=== PATIENT | male | born 1960 | race African-American/Black ===

== ENCOUNTER 2017-01-08 02:01 | Emergency (ER) | payer MEDICAID ==
[~2017-01-08] VITALS: Ht 170.2 cm; Wt 70.0 kg
[~2017-01-08 02:01] MED LIST: ATOR10TA69 PO; CALC1TAB17 PO; DILANTIN PO; FERR1TAB51 PO; MULT-1146 PO; OMEP40CA34 PO; [UNRECOGNIZED DRUG - CODE] PO; [UNRECOGNIZED DRUG - OTHER] PO
[2017-01-08] MEDS ORDERED: TRAMADOL 50MG TABLET PO ONE (03:15)
[2017-01-08 03:45] VITALS: BP 149/103
== END 2017-01-08 03:45 | disposition home or self-care (01) ==
LOC: ER 02:24
DX: H66.92 Otitis media, unspecified, left ear (principal); F17.210 Nicotine dependence, cigarettes, uncomplicated; M19.90 Unspecified osteoarthritis, unspecified site; I10 Essential (primary) hypertension; Z90.49 Acquired absence of other specified parts of digestive tract; Z79.899 Other long term (current) drug therapy
CPT/HCPCS: 99283

== ENCOUNTER 2018-09-24 09:07 | Emergency (ER) | payer MEDICAID ==
[~2018-09-24] VITALS: Ht 170.2 cm; Wt 63.0 kg
[~2018-09-24 09:07] MED LIST changes: +PHEN100O2 PO; -[UNRECOGNIZED DRUG - CODE] PO
[2018-09-24 13:35] VITALS: BP 132/84
== END 2018-09-24 13:36 | disposition home or self-care (01) ==
LOC: ER 09:07
DX: J06.9 Acute upper respiratory infection, unspecified (principal); D64.9 Anemia, unspecified; F32.9 Major depressive disorder, single episode, unspecified; I10 Essential (primary) hypertension; F17.200 Nicotine dependence, unspecified, uncomplicated; Z90.49 Acquired absence of other specified parts of digestive tract; Z79.899 Other long term (current) drug therapy
CPT/HCPCS: 71045; 87804; 99284

== ENCOUNTER 2018-10-30 08:55 | Emergency (ER) | payer MEDICAID ==
[~2018-10-30] VITALS: Ht 177.8 cm; Wt 80.0 kg
[2018-10-30] MEDS ORDERED: ACETAMINOPHEN 325MG TABLET PO ONE (11:00)
[2018-10-30] MEDS ORDERED: KETOROLAC 60MG/2ML VIAL IM ONE (11:15)
[2018-10-30] MEDS ORDERED: SODIUM CHLORIDE 0.9% 1,000 ML IV ONE (14:10)
[2018-10-30] MEDS ORDERED: MORPHINE SULFATE 4 MG/ML CPJ (NOT FOR IM USE) IV STA (14:10)
[2018-10-30] MEDS ORDERED: ONDANSETRON HCL 4MG/2ML INJ IV ONE (14:30)
[2018-10-30 15:10] LABS: CHLORIDE 100 mEq/L (98-107)
[2018-10-30 15:11] LABS: HEMATOCRIT. 23.3 % (42.0-52.0); HEMOGLOBIN. 7.6 g/dL (14.0-18.0); MEAN CORPUSCULAR HEMOGLOBIN 25.2 pg (28.0-32.0); MEAN CORPUSCULAR VOLUME 76.9 fL (80.0-94.0); MEAN PLATELET VOLUME 7.9 fl (7.4-10.4); PLATELET 130 x1000/uL (130-400); PROTHROMBIN TIME 9.8 sec (9.1-11.1); RED BLOOD CELL COUNT 3.03 mill/uL (4.7-6.1); RED CELL DISTRIBUTION WIDTH 16.4 % (11.6-14.6)
[2018-10-30 15:30] LABS: PLATELET ESTIMATE NORMAL
[2018-10-30 18:14] VITALS: BP 129/73
== END 2018-10-30 18:35 | disposition short-term general hospital (02) ==
LOC: ER 08:55 → CANBEDREQ 19:15
DX: S36.113A Laceration of liver, unspecified degree, initial encounter (principal); S22.41XA Multiple fractures of ribs, right side, initial encounter for closed fracture; J90 Pleural effusion, not elsewhere classified; F32.9 Major depressive disorder, single episode, unspecified; N28.1 Cyst of kidney, acquired; J98.11 Atelectasis; I10 Essential (primary) hypertension; D64.9 Anemia, unspecified; G40.909 Epilepsy, unspecified, not intractable, without status epilepticus; M41.84 Other forms of scoliosis, thoracic region; Z90.49 Acquired absence of other specified parts of digestive tract; V43.52XA Car driver injured in collision with other type car in traffic accident, initial encounter; Y93.89 Activity, other specified; Y92.488 Other paved roadways as the place of occurrence of the external cause
CPT/HCPCS: 36415; 71045; 71250; 74177; 80053; 83690; 85025; 85610; 86850; 86900; 86901; 96361; 96372; 96374; 96375; 99285; J1885; J2270; J2405

== ENCOUNTER 2018-11-18 13:27 | Inpatient (IN) | payer MEDICAID ==
[~2018-11-18] VITALS: Ht 171.4 cm; Wt 59.6 kg
[2018-11-18] MEDS ORDERED: METHYLPREDNISOLONE SOD SUCC 125 MG/2 ML VIAL IV ONE (14:00)
[2018-11-18] MEDS ORDERED: FAMOTIDINE 20MG/2ML VIAL IV ONE (14:00)
[2018-11-18 15:51] LABS: CHLORIDE 96 mEq/L (98-107)
[2018-11-18 15:54] LABS: BASOPHILS % 0.2 % (0.0-2.0); EOSINOPHILS % 1.9 % (0.0-5.0); HEMATOCRIT. 37.2 % (42.0-52.0); HEMOGLOBIN. 11.7 g/dL (14.0-18.0); INR 1.1; LYMPHOCYTES % 14.1 % (20.0-50.0); MEAN CORPUSCULAR HEMOGLOBIN 25.7 pg (28.0-32.0); MEAN CORPUSCULAR VOLUME 81.6 fL (80.0-94.0); MEAN PLATELET VOLUME 6.9 fl (7.4-10.4); MONOCYTES % 5.1 % (2.0-8.0); NEUTROPHILS % 78.7 % (40.0-76.0); PLATELET 311 x1000/uL (130-400); PROTHROMBIN TIME 10.8 sec (9.1-11.1); RED BLOOD CELL COUNT 4.56 mill/uL (4.7-6.1); RED CELL DISTRIBUTION WIDTH 18.2 % (11.6-14.6)
[2018-11-18] MEDS ORDERED: DIPHENHYDRAMINE 50MG/ML VIAL IV ONE (16:45)
[2018-11-18] MEDS ORDERED: DOCUSATE SODIUM 100MG CAPSULE PO PRN (18:00)
[2018-11-18] MEDS ORDERED: CLONIDINE 0.1MG TABLET PO PRN (18:00)
[2018-11-18] MEDS ORDERED: IPRATROPIUM/ALBUTEROL 0.5-3(2.5)MG/3ML NEB INH PRN (18:00)
[2018-11-18] MEDS ORDERED: ACETAMINOPHEN 325MG TABLET PO PRN (18:00)
[2018-11-18] MEDS ORDERED: MAGNESIUM/ALUMINUM HYDROXIDE/SIMETHICONE 30ML UDC PO PRN (18:00)
[2018-11-18] MEDS ORDERED: ONDANSETRON HCL 4MG/2ML INJ IV PRN (18:00)
[2018-11-18 21:45] VITALS: BP 120/80
[2018-11-18 22:00] VITALS: BP 120/80
[2018-11-18] MEDS ORDERED: FAMOTIDINE 20MG/2ML VIAL IV SCH (22:00)
[2018-11-18] MEDS: METHYLPREDNISOLONE SOD SUCC 125 MG/2 ML VIAL IV SCH (23:39)
[2018-11-19 00:47] LABS: CREATINE KINASE 42 IU/L (39-308)
[2018-11-19 00:48] LABS: CREATINE KINASE MB FRACTION < 1.0 ng/mL (0.5-3.6)
[2018-11-19 04:00] VITALS: BP 103/67
[2018-11-19 04:49] LABS: *AMPHETAMINES SCREEN URINE NEGATIVE (NEGATIVE); *BARBITURATES SCREEN URINE NEGATIVE (NEGATIVE); *BENZODIAZEPINES SCREEN URINE NEGATIVE (NEGATIVE)
[2018-11-19 04:50] LABS: *COCAINE SCREEN URINE NEGATIVE (NEGATIVE); CANNABINOID URINE SCREEN NEGATIVE (NEGATIVE); METHADONE URINE SCREEN NEGATIVE (NEGATIVE); OPIATES URINE SCREEN PRESUMTIVE POSITIVE (NEGATIVE); PHENCYCLIDINE URINE SCREEN NEGATIVE (NEGATIVE)
[2018-11-19] MEDS ORDERED: DEXTROSE 50% WATER 50ML SYRINGE IV PRN (05:00)
[2018-11-19] MEDS: METHYLPREDNISOLONE SOD SUCC 125 MG/2 ML VIAL IV SCH ×3 (06:53→21:01)
[2018-11-19] MEDS: BLOOD SUGAR DIAGNOSTIC STRIP TEST SCH ×4 (06:53→21:08)
[2018-11-19] MEDS: INSULIN LISPRO 100 UNITS/ML SUBCUT SCH ×4 (07:02→21:00)
[2018-11-19 08:00] VITALS: BP 115/74
[2018-11-19] MEDS: ENOXAPARIN 40MG/0.4ML SYR SUBCUT SCH (08:22)
[2018-11-19] MEDS: FAMOTIDINE 20MG/2ML VIAL IV SCH ×2 (08:22→20:58)
[2018-11-19] MEDS: LEVETIRACETAM 500MG TABLET PO SCH (11:52)
[2018-11-19] MEDS: PHENYTOIN SODIUM EXTENDED 100MG CAPSULE PO SCH (11:52)
[2018-11-19] MEDS ORDERED: PNEUMOCOCCAL 23-VAL P-SAC VAC 0.5 ML IM ONE (12:00)
[2018-11-19 15:46] LABS: BASOPHILS % 0.9 % (0.0-2.0); HEMOGLOBIN. 9.9 g/dL (14.0-18.0); LYMPHOCYTES % 29.1 % (20.0-50.0); MEAN CORPUSCULAR HEMOGLOBIN 26.2 pg (28.0-32.0); MEAN CORPUSCULAR VOLUME 79.5 fL (80.0-94.0); MEAN PLATELET VOLUME 7.1 fl (7.4-10.4); MONOCYTES % 5.7 % (2.0-8.0); NEUTROPHILS % 62.3 % (40.0-76.0); PLATELET 292 x1000/uL (130-400); RED BLOOD CELL COUNT 3.77 mill/uL (4.7-6.1); RED CELL DISTRIBUTION WIDTH 18.1 % (11.6-14.6)
[2018-11-19 15:56] LABS: CHLORIDE 100 mEq/L (98-107)
[2018-11-19 16:04] LABS: LDL CHOLESTEROL 42 mg/dL (5-100)
[2018-11-19 16:05] LABS: CREATINE KINASE 38 IU/L (39-308); HDL CHOLESTEROL 98 mg/dL (40-59)
[2018-11-19 16:08] LABS: CREATINE KINASE MB FRACTION < 1.0 ng/mL (0.5-3.6)
[2018-11-19] MEDS: HYDROMORPHONE HCL/PF 2MG/ML CPJ IV PRN (17:50)
[2018-11-19 20:01] VITALS: BP 118/65
[2018-11-19] MEDS ORDERED: EPINEPHRINE 0.1MG/ML (1:10,000) 10ML SYR IV ONE (21:15)
[2018-11-19] MEDS ORDERED: EPINEPHRINE 0.1MG/ML (1:10,000) 10ML SYR IV PRN (21:30)
[2018-11-19 22:00] VITALS: BP 118/65
[2018-11-19 23:51] VITALS: BP 108/64
[2018-11-20] VITALS (7 sets, daily range): BP systolic 103–121; BP diastolic 62–79
[2018-11-20] MEDS ORDERED: PNEUMOCOCCAL 23-VAL P-SAC VAC 0.5 ML IM ONE
[2018-11-20] MEDS: METHYLPREDNISOLONE SOD SUCC 125 MG/2 ML VIAL IV SCH ×2 (06:57→13:31)
[2018-11-20] MEDS: INSULIN LISPRO 100 UNITS/ML SUBCUT SCH ×2 (07:05→12:20)
[2018-11-20] MEDS: BLOOD SUGAR DIAGNOSTIC STRIP TEST SCH ×2 (07:05→12:00)
[2018-11-20] MEDS: ENOXAPARIN 40MG/0.4ML SYR SUBCUT SCH (08:22)
[2018-11-20] MEDS: FAMOTIDINE 20MG/2ML VIAL IV SCH (08:22)
[2018-11-20] MEDS: LEVETIRACETAM 500MG TABLET PO SCH (08:22)
[2018-11-20] MEDS: PHENYTOIN SODIUM EXTENDED 100MG CAPSULE PO SCH (08:23)
[2018-11-20] MEDS: HYDROMORPHONE HCL/PF 2MG/ML CPJ IV PRN (08:35)
[2018-11-20] MEDS ORDERED: LORA10TA7 MT (14:06)
[2018-11-20] MEDS ORDERED: FAMO-135 MT (14:06)
[2018-11-20] MEDS ORDERED: MED4 MT (14:06)
[2018-11-20] MEDS ORDERED: KEPP500 PO (14:08)
== END 2018-11-20 15:35 | disposition home or self-care (01) | DRG 811 ==
LOC: ER 13:40 → 3WST 16:35 → ENRESERV 20:01
PROVIDERS: ADMIT Internal Medicine; ATTEND Internal Medicine
PROC: 30233K1 Transfusion of Nonautologous Frozen Plasma into Peripheral Vein, Percutaneous Approach (ICD-10-PCS; principal; 2018-11-18)
DX: T78.3XXA Angioneurotic edema, initial encounter (principal); J96.00 Acute respiratory failure, unspecified whether with hypoxia or hypercapnia; R13.10 Dysphagia, unspecified; D50.9 Iron deficiency anemia, unspecified; F17.210 Nicotine dependence, cigarettes, uncomplicated; E78.5 Hyperlipidemia, unspecified; G40.909 Epilepsy, unspecified, not intractable, without status epilepticus; I10 Essential (primary) hypertension; J98.19 Other pulmonary collapse; R47.02 Dysphasia; T46.4X5A Adverse effect of angiotensin-converting-enzyme inhibitors, initial encounter; Z86.79 Personal history of other diseases of the circulatory system; Z88.8 Allergy status to other drugs, medicaments and biological substances; Z79.899 Other long term (current) drug therapy; Y92.89 Other specified places as the place of occurrence of the external cause
CPT/HCPCS: 36415; 71045; 80061; 80305; 82550; 82553; 82962; 82977; 83036; 83735; 84443; 84484; 86850; 86900; 86927; 90732; 93005; 93970; 96374; 96375; 99291; J1170; J1200; J1650; J2930; J3490; P9017

== ENCOUNTER 2019-01-14 11:55 | Inpatient (IN) | payer MEDICAID ==
[~2019-01-14] VITALS: Ht 172.7 cm; Wt 59.9 kg
[~2019-01-14 11:55] MED LIST changes: +FAMO-135 MT; +KEPP500 PO; +LORA10TA7 MT; +MED4 MT; -PHEN100O2 PO; -[UNRECOGNIZED DRUG - OTHER] PO
[2019-01-14 16:02] LABS: CLARITY URINE CLEAR (CLEAR); COLOR URINE YELLOW (YELLOW); KETONES URINE TRACE (NEGATIVE); LEUKOCYTE ESTERASE URINE TRACE (NEGATIVE); NITRITE URINE NEGATIVE (NEGATIVE); OCCULT BLOOD URINE NEGATIVE (NEGATIVE); PH URINE 5.5 (4.5-8.0); PROTEIN URINE NEGATIVE (NEGATIVE); SPECIFIC GRAVITY URINE 1.017 (1.005-1.030); UROBILINOGEN URINE 0.2 E.U./dL (0.2-1.0)
[2019-01-14] MEDS ORDERED: IBUPROFEN 600MG TABLET PO ONE (17:15)
[2019-01-14] MEDS ORDERED: HYDROCODONE/ACETAMINOPHEN 5/325MG TABLET PO ONE (17:15)
[2019-01-14 18:32] LABS: HEMATOCRIT. 31.1 % (42.0-52.0); HEMOGLOBIN. 10.1 g/dL (14.0-18.0); MEAN CORPUSCULAR HEMOGLOBIN 24.5 pg (28.0-32.0); MEAN CORPUSCULAR VOLUME 75.6 fL (80.0-94.0); MEAN PLATELET VOLUME 6.5 fl (7.4-10.4); PLATELET 220 x1000/uL (130-400); RED BLOOD CELL COUNT 4.11 mill/uL (4.7-6.1); RED CELL DISTRIBUTION WIDTH 16.4 % (11.6-14.6)
[2019-01-14 18:38] LABS: CHLORIDE 99 mEq/L (98-107)
[2019-01-14] MEDS ORDERED: VANCOMYCIN 1 G PREMIX 200 ML IV ONE (19:45)
[2019-01-14] MEDS ORDERED: PIPERACILLIN/TAZ 3.375G PREMIX 50 ML IV ONE (19:45)
[2019-01-14] MEDS ORDERED: MAGNESIUM/ALUMINUM HYDROXIDE/SIMETHICONE 30ML UDC PO PRN (20:30)
[2019-01-14] MEDS ORDERED: GUAIFENESIN 200MG/10ML SUGAR FREE UDC PO PRN (20:30)
[2019-01-14] MEDS ORDERED: DOCUSATE SODIUM 100MG CAPSULE PO PRN (20:30)
[2019-01-14] MEDS ORDERED: HYDRALAZINE 20MG/ML VIAL IV PRN (20:30)
[2019-01-14] MEDS ORDERED: DIPHENHYDRAMINE 50MG/ML VIAL IV PRN (20:30)
[2019-01-14] MEDS ORDERED: CLONIDINE 0.1MG TABLET PO PRN (20:30)
[2019-01-14] MEDS ORDERED: LORAZEPAM 2MG/ML CPJ IV PRN (20:30)
[2019-01-14] MEDS ORDERED: ACETAMINOPHEN 325MG TABLET PO PRN (20:30)
[2019-01-14] MEDS ORDERED: IPRATROPIUM/ALBUTEROL 0.5-3(2.5)MG/3ML NEB INH PRN (20:30)
[2019-01-14] MEDS ORDERED: ONDANSETRON HCL 4MG/2ML INJ IV PRN (20:30)
[2019-01-14 20:38] LABS: PLATELET ESTIMATE NORMAL
[2019-01-14 22:40] LABS: CREATINE KINASE 62 IU/L (39-308)
[2019-01-14 22:41] LABS: CREATINE KINASE MB FRACTION < 1.0 ng/mL (0.5-3.6)
[2019-01-15] VITALS (7 sets, daily range): BP systolic 98–125; BP diastolic 56–78
[2019-01-15] MEDS ORDERED: HYDRALAZINE 10 MG in DEXTROSE 5% WATER 50 ML IV PRN (02:00)
[2019-01-15] MEDS ORDERED: VANCOMYCIN 750 MG PREMIX 150 ML IV SCH (05:00)
[2019-01-15] MEDS: PIPERACILLIN/TAZ 3.375G PREMIX 50 ML IV SCH ×2 (06:35→14:32)
[2019-01-15] MEDS: SODIUM CHLORIDE 0.9% INJ 3ML FLUSH IVF SCH ×3 (06:48→23:26)
[2019-01-15 07:21] LABS: HEMATOCRIT. 30.8 % (42.0-52.0); HEMOGLOBIN. 9.9 g/dL (14.0-18.0); MEAN CORPUSCULAR VOLUME 74.6 fL (80.0-94.0); MEAN PLATELET VOLUME 6.8 fl (7.4-10.4); PLATELET 225 x1000/uL (130-400); RED BLOOD CELL COUNT 4.13 mill/uL (4.7-6.1); RED CELL DISTRIBUTION WIDTH 16.1 % (11.6-14.6)
[2019-01-15 07:47] LABS: CHLORIDE 102 mEq/L (98-107)
[2019-01-15 08:04] LABS: CREATINE KINASE 51 IU/L (39-308)
[2019-01-15 08:07] LABS: CREATINE KINASE MB FRACTION < 1.0 ng/mL (0.5-3.6)
[2019-01-15] MEDS: VANCOMYCIN 750 MG PREMIX 150 ML IV SCH ×2 (11:57→22:45)
[2019-01-15] MEDS: HYDROCODONE/ACETAMINOPHEN 10/325MG TABLET PO PRN ×3 (12:02→22:45)
[2019-01-15 13:23] LABS: PLATELET ESTIMATE NORMAL
[2019-01-15] MEDS: LORATADINE 10MG TABLET PO SCH (15:47)
[2019-01-15] MEDS: PHENYTOIN SODIUM EXTENDED 100MG CAPSULE PO SCH (15:47)
[2019-01-15] MEDS: CALCIUM CARBONATE 500MG TABLET CHEW PO SCH (15:47)
[2019-01-15] MEDS: MULTIVITAMINS,THER W-MINERALS TABLET PO SCH (15:48)
[2019-01-15] MEDS: LEVETIRACETAM 500MG TABLET PO SCH (15:48)
[2019-01-15] MEDS: FERROUS SULFATE 325MG TABLET PO SCH (15:48)
[2019-01-15] MEDS: FAMOTIDINE 20MG TABLET PO SCH (22:45)
[2019-01-16] VITALS (17 sets, daily range): BP systolic 101–140; BP diastolic 55–87
[2019-01-16 00:05] LABS: PROTHROMBIN TIME 10.2 sec (9.1-11.1)
[2019-01-16] MEDS: PIPERACILLIN/TAZ 3.375G PREMIX 50 ML IV SCH ×3 (01:23→17:41)
[2019-01-16] MEDS: SODIUM CHLORIDE 0.9% INJ 3ML FLUSH IVF SCH (06:32)
[2019-01-16] MEDS: VANCOMYCIN 750 MG PREMIX 150 ML IV SCH (06:32)
[2019-01-16 07:43] LABS: CHLORIDE 102 mEq/L (98-107)
[2019-01-16] MEDS: CALCIUM CARBONATE 500MG TABLET CHEW PO SCH ×3 (08:07→17:41)
[2019-01-16] MEDS: PHENYTOIN SODIUM EXTENDED 100MG CAPSULE PO SCH (08:07)
[2019-01-16] MEDS: MULTIVITAMINS,THER W-MINERALS TABLET PO SCH (08:07)
[2019-01-16] MEDS: FAMOTIDINE 20MG TABLET PO SCH ×2 (08:07→21:26)
[2019-01-16] MEDS: LORATADINE 10MG TABLET PO SCH (08:07)
[2019-01-16] MEDS: FERROUS SULFATE 325MG TABLET PO SCH (08:08)
[2019-01-16] MEDS: HYDROCODONE/ACETAMINOPHEN 10/325MG TABLET PO PRN ×3 (08:08→19:02)
[2019-01-16] MEDS: LEVETIRACETAM 500MG TABLET PO SCH (08:08)
[2019-01-16] MEDS ORDERED: LIDOCAINE HCL 1% 20ML VIAL (Pyxis) INJ ONE (08:19)
[2019-01-16] MEDS ORDERED: SODIUM BICARBONATE 4% (2.4MEQ) 5ML VIAL IV ONE (08:19)
[2019-01-16] MEDS ORDERED: FENTANYL CITRATE/PF 50MCG/ML 2ML VIAL ONE (08:20)
[2019-01-16] MEDS ORDERED: FENTANYL CITRATE/PF 50MCG/ML 2ML VIAL IV ONE (10:00)
[2019-01-16] MEDS: HYDROMORPHONE HCL/PF 2MG/ML CPJ IV PRN ×2 (16:02→21:31)
[2019-01-16] MEDS: VANCOMYCIN 1 G PREMIX 200 ML IV SCH (18:59)
[2019-01-17] VITALS: BP 120/80
[2019-01-17] MEDS: PIPERACILLIN/TAZ 3.375G PREMIX 50 ML IV SCH ×2 (01:00→12:15)
[2019-01-17 04:00] VITALS: BP 113/71
[2019-01-17] MEDS: VANCOMYCIN 1 G PREMIX 200 ML IV SCH (06:00)
[2019-01-17 08:00] VITALS: BP 111/73
[2019-01-17] MEDS: LORATADINE 10MG TABLET PO SCH (09:02)
[2019-01-17] MEDS: LEVETIRACETAM 500MG TABLET PO SCH (09:02)
[2019-01-17] MEDS: MULTIVITAMINS,THER W-MINERALS TABLET PO SCH (09:02)
[2019-01-17] MEDS: FERROUS SULFATE 325MG TABLET PO SCH (09:02)
[2019-01-17] MEDS: CALCIUM CARBONATE 500MG TABLET CHEW PO SCH (09:02)
[2019-01-17] MEDS: PHENYTOIN SODIUM EXTENDED 100MG CAPSULE PO SCH (09:02)
[2019-01-17] MEDS: FAMOTIDINE 20MG TABLET PO SCH (09:02)
[2019-01-17] MEDS: HYDROCODONE/ACETAMINOPHEN 10/325MG TABLET PO PRN (09:09)
[2019-01-17 12:00] VITALS: BP 142/78
[2019-01-17 13:26] VITALS: BP 142/78
== END 2019-01-17 13:55 | disposition home or self-care (01) | DRG 279 ==
LOC: ER 12:32 → 6EST 20:00 → EDBEDREQSVC 20:03 → EDBEDREQTM 20:03 → EDBEDREQ 20:03 → ENRESERV 23:21
PROVIDERS: ADMIT Internal Medicine; ATTEND Internal Medicine
PROC: 0F913ZZ Drainage of Right Lobe Liver, Percutaneous Approach (ICD-10-PCS; principal; 2019-01-16)
DX: K75.0 Abscess of liver (principal); E44.1 Mild protein-calorie malnutrition; D50.9 Iron deficiency anemia, unspecified; E78.5 Hyperlipidemia, unspecified; F17.210 Nicotine dependence, cigarettes, uncomplicated; F32.9 Major depressive disorder, single episode, unspecified; I10 Essential (primary) hypertension; Z79.899 Other long term (current) drug therapy; Z88.8 Allergy status to other drugs, medicaments and biological substances; Z90.49 Acquired absence of other specified parts of digestive tract
CPT/HCPCS: 36415; 74176; 77012; 80048; 80202; 82550; 82553; 83605; 84145; 84484; 87070; 87075; 88172; 88173; 88312; 96374; 96375; 99285; J1170; J1200; J2060; J2543; J3010; J3370; J3490; J7040; J7050; J7620

== ENCOUNTER 2019-02-24 15:40 | Inpatient (IN) | payer MEDICAID ==
[~2019-02-24] VITALS: Ht 170.2 cm; Wt 64.9 kg
[2019-02-24] MEDS ORDERED: MORPHINE SULFATE 4 MG/ML CPJ (NOT FOR IM USE) IV STA (17:43)
[2019-02-24] MEDS ORDERED: ONDANSETRON HCL 4MG/2ML INJ IV STA (17:43)
[2019-02-24] MEDS ORDERED: SODIUM CHLORIDE 0.9% 1,000 ML IV ONE (17:43)
[2019-02-24 18:20] LABS: HEMATOCRIT. 29.7 % (42.0-52.0); HEMOGLOBIN. 9.6 g/dL (14.0-18.0); MEAN CORPUSCULAR HEMOGLOBIN 23.8 pg (28.0-32.0); MEAN CORPUSCULAR VOLUME 73.9 fL (80.0-94.0); MEAN PLATELET VOLUME 6.6 fl (7.4-10.4); PLATELET 161 x1000/uL (130-400); RED BLOOD CELL COUNT 4.02 mill/uL (4.7-6.1); RED CELL DISTRIBUTION WIDTH 16.4 % (11.6-14.6)
[2019-02-24 18:21] LABS: CHLORIDE 105 mEq/L (98-107)
[2019-02-24 19:34] LABS: CLARITY URINE CLEAR (CLEAR); COLOR URINE YELLOW (YELLOW); KETONES URINE NEGATIVE (NEGATIVE); LEUKOCYTE ESTERASE URINE NEGATIVE (NEGATIVE); NITRITE URINE NEGATIVE (NEGATIVE); OCCULT BLOOD URINE NEGATIVE (NEGATIVE); PH URINE 5.5 (4.5-8.0); PROTEIN URINE TRACE (NEGATIVE); SPECIFIC GRAVITY URINE 1.019 (1.005-1.030); UROBILINOGEN URINE 0.2 E.U./dL (0.2-1.0)
[2019-02-24 19:56] LABS: PLATELET ESTIMATE NORMAL
[2019-02-24] MEDS ORDERED: IOHEXOL-300 100 ML BOTTLE ONE (21:36)
[2019-02-25 00:10] VITALS: BP 138/81
[2019-02-25] MEDS ORDERED: ONDANSETRON HCL 4MG/2ML INJ IV PRN (00:30)
[2019-02-25] MEDS ORDERED: CLONIDINE 0.1MG TABLET PO PRN (00:30)
[2019-02-25] MEDS ORDERED: MAGNESIUM/ALUMINUM HYDROXIDE/SIMETHICONE 30ML UDC PO PRN (00:30)
[2019-02-25] MEDS ORDERED: ACETAMINOPHEN 325MG TABLET PO PRN (00:30)
[2019-02-25] MEDS ORDERED: IPRATROPIUM/ALBUTEROL 0.5-3(2.5)MG/3ML NEB INH PRN (00:30)
[2019-02-25] MEDS ORDERED: GUAIFENESIN 200MG/10ML SUGAR FREE UDC PO PRN (00:30)
[2019-02-25] MEDS ORDERED: AMLO5TAB88 PO (01:16)
[2019-02-25] MEDS ORDERED: FERR-71 PO (01:16)
[2019-02-25] MEDS ORDERED: NAPR-679 PO (01:16)
[2019-02-25] MEDS ORDERED: PHEN100C4 PO (01:16)
[2019-02-25 04:00] VITALS: BP 104/59
[2019-02-25 08:00] VITALS: BP 122/65
[2019-02-25] MEDS: ENOXAPARIN 40MG/0.4ML SYR SUBCUT SCH (08:38)
[2019-02-25 09:08] LABS: CREATINE KINASE 57 IU/L (39-308)
[2019-02-25 09:10] LABS: CREATINE KINASE MB FRACTION < 1.0 ng/mL (0.5-3.6)
[2019-02-25 09:58] LABS: *AMPHETAMINES SCREEN URINE NEGATIVE (NEGATIVE); *BARBITURATES SCREEN URINE NEGATIVE (NEGATIVE); *BENZODIAZEPINES SCREEN URINE NEGATIVE (NEGATIVE); *COCAINE SCREEN URINE NEGATIVE (NEGATIVE); METHADONE URINE SCREEN NEGATIVE (NEGATIVE); OPIATES URINE SCREEN PRESUMTIVE POSITIVE (NEGATIVE)
[2019-02-25 09:59] LABS: CANNABINOID URINE SCREEN NEGATIVE (NEGATIVE); PHENCYCLIDINE URINE SCREEN NEGATIVE (NEGATIVE)
[2019-02-25] MEDS ORDERED: HYDROCODONE/ACETAMINOPHEN 5/325MG TABLET PO PRN (11:15)
[2019-02-25 12:00] VITALS: BP 105/65
[2019-02-25] MEDS: HYDROCODONE/ACETAMINOPHEN 5/325MG TABLET PO PRN (12:05)
[2019-02-25] MEDS: LEVETIRACETAM 500MG TABLET PO SCH (12:06)
[2019-02-25] MEDS: AMLODIPINE 5MG TABLET PO SCH (12:07)
[2019-02-25] MEDS: PHENYTOIN SODIUM EXTENDED 100MG CAPSULE PO SCH (12:07)
[2019-02-25] MEDS: MORPHINE SULFATE 4 MG/ML CPJ (NOT FOR IM USE) IV PRN ×2 (14:20→20:54)
[2019-02-25 16:00] VITALS: BP 123/71
[2019-02-25 20:00] VITALS: BP 133/78
[2019-02-25] MEDS: ATORVASTATIN CALCIUM 10MG TABLET PO SCH (21:24)
[2019-02-25 22:08] LABS: CREATINE KINASE 46 IU/L (39-308)
[2019-02-25 22:09] LABS: CREATINE KINASE MB FRACTION < 1.0 ng/mL (0.5-3.6)
[2019-02-26 06:49] LABS: BASOPHILS % 1.1 % (0.0-2.0); EOSINOPHILS % 1.9 % (0.0-5.0); HEMATOCRIT. 30.1 % (42.0-52.0); HEMOGLOBIN. 9.8 g/dL (14.0-18.0); LYMPHOCYTES % 25.9 % (20.0-50.0); MEAN CORPUSCULAR HEMOGLOBIN 23.8 pg (28.0-32.0); MEAN CORPUSCULAR VOLUME 73.3 fL (80.0-94.0); MEAN PLATELET VOLUME 6.9 fl (7.4-10.4); MONOCYTES % 10.2 % (2.0-8.0); NEUTROPHILS % 60.9 % (40.0-76.0); PLATELET 155 x1000/uL (130-400); RED CELL DISTRIBUTION WIDTH 16.3 % (11.6-14.6)
[2019-02-26 07:53] LABS: CHLORIDE 105 mEq/L (98-107)
[2019-02-26 08:00] VITALS: BP 129/80
[2019-02-26 08:13] LABS: LDL CHOLESTEROL 19 mg/dL (5-100)
[2019-02-26] MEDS: ENOXAPARIN 40MG/0.4ML SYR SUBCUT SCH (08:14)
[2019-02-26] MEDS: PHENYTOIN SODIUM EXTENDED 100MG CAPSULE PO SCH (08:52)
[2019-02-26] MEDS: LEVETIRACETAM 500MG TABLET PO SCH (08:52)
[2019-02-26] MEDS: AMLODIPINE 5MG TABLET PO SCH (08:52)
[2019-02-26] MEDS: HYDROCODONE/ACETAMINOPHEN 5/325MG TABLET PO PRN ×2 (08:52→23:55)
[2019-02-26 09:15] LABS: HDL CHOLESTEROL 173 mg/dL (40-59)
[2019-02-26 12:00] VITALS: BP 107/69
[2019-02-26] MEDS: MORPHINE SULFATE 4 MG/ML CPJ (NOT FOR IM USE) IV PRN (13:20)
[2019-02-26 16:00] VITALS: BP 111/53
[2019-02-26 20:00] VITALS: BP 114/72
[2019-02-26] MEDS: ATORVASTATIN CALCIUM 10MG TABLET PO SCH (21:05)
[2019-02-27] VITALS: BP 112/63
[2019-02-27 04:00] VITALS: BP 118/68
[2019-02-27 07:09] LABS: BASOPHILS % 0.9 % (0.0-2.0); EOSINOPHILS % 2.5 % (0.0-5.0); HEMATOCRIT. 29.9 % (42.0-52.0); HEMOGLOBIN. 9.8 g/dL (14.0-18.0); LYMPHOCYTES % 30.2 % (20.0-50.0); MEAN CORPUSCULAR HEMOGLOBIN 23.9 pg (28.0-32.0); MEAN CORPUSCULAR VOLUME 73.1 fL (80.0-94.0); MEAN PLATELET VOLUME 6.9 fl (7.4-10.4); MONOCYTES % 12.3 % (2.0-8.0); NEUTROPHILS % 54.1 % (40.0-76.0); PLATELET 171 x1000/uL (130-400); RED CELL DISTRIBUTION WIDTH 16.6 % (11.6-14.6)
[2019-02-27 07:34] LABS: CHLORIDE 103 mEq/L (98-107)
[2019-02-27] MEDS: DOCUSATE SODIUM 100MG CAPSULE PO SCH (08:53)
[2019-02-27] MEDS: PHENYTOIN SODIUM EXTENDED 100MG CAPSULE PO SCH (08:53)
[2019-02-27] MEDS: LEVETIRACETAM 500MG TABLET PO SCH (08:54)
[2019-02-27] MEDS: AMLODIPINE 5MG TABLET PO SCH (08:54)
[2019-02-27] MEDS: ENOXAPARIN 40MG/0.4ML SYR SUBCUT SCH (08:55)
[2019-02-27 09:01] VITALS: BP 99/67
[2019-02-27] MEDS: HYDROCODONE/ACETAMINOPHEN 5/325MG TABLET PO PRN (09:11)
[2019-02-27 12:41] VITALS: BP 115/70
[2019-02-27 17:10] VITALS: BP 118/77
[2019-02-27 20:00] VITALS: BP 125/75
[2019-02-27] MEDS: ATORVASTATIN CALCIUM 10MG TABLET PO SCH (20:25)
[2019-02-27] MEDS: MORPHINE SULFATE 4 MG/ML CPJ (NOT FOR IM USE) IV PRN (20:25)
[2019-02-28 00:10] VITALS: BP 111/74
[2019-02-28] MEDS: HYDROCODONE/ACETAMINOPHEN 5/325MG TABLET PO PRN ×2 (00:40→10:00)
[2019-02-28 04:30] VITALS: BP 116/63
[2019-02-28 06:20] LABS: HEMATOCRIT. 29.4 % (42.0-52.0); HEMOGLOBIN. 9.5 g/dL (14.0-18.0); MEAN CORPUSCULAR HEMOGLOBIN 23.7 pg (28.0-32.0); MEAN CORPUSCULAR VOLUME 73.6 fL (80.0-94.0); MEAN PLATELET VOLUME 6.9 fl (7.4-10.4); PLATELET 183 x1000/uL (130-400); RED BLOOD CELL COUNT 3.99 mill/uL (4.7-6.1); RED CELL DISTRIBUTION WIDTH 16.1 % (11.6-14.6)
[2019-02-28 06:26] LABS: CHLORIDE 102 mEq/L (98-107)
[2019-02-28 08:00] VITALS: BP 101/61
[2019-02-28] MEDS: ENOXAPARIN 40MG/0.4ML SYR SUBCUT SCH (09:00)
[2019-02-28] MEDS: AMLODIPINE 5MG TABLET PO SCH (09:00)
[2019-02-28] MEDS: LEVETIRACETAM 500MG TABLET PO SCH (09:45)
[2019-02-28] MEDS: PHENYTOIN SODIUM EXTENDED 100MG CAPSULE PO SCH (09:45)
[2019-02-28] MEDS: DOCUSATE SODIUM 100MG CAPSULE PO SCH (09:46)
[2019-02-28 12:00] VITALS: BP 109/69
[2019-02-28 14:03] LABS: PLATELET ESTIMATE NORMAL
[2019-02-28] MEDS: MORPHINE SULFATE 4 MG/ML CPJ (NOT FOR IM USE) IV PRN (16:57)
[2019-02-28 20:00] VITALS: BP 100/65
[2019-02-28] MEDS: ATORVASTATIN CALCIUM 10MG TABLET PO SCH (21:17)
[2019-03-01] VITALS (17 sets, daily range): BP systolic 104–119; BP diastolic 65–88
[2019-03-01 05:58] LABS: CHLORIDE 102 mEq/L (98-107)
[2019-03-01 06:14] LABS: HEMOGLOBIN. 10.5 g/dL (14.0-18.0); MEAN CORPUSCULAR HEMOGLOBIN 23.6 pg (28.0-32.0); MEAN CORPUSCULAR VOLUME 73.9 fL (80.0-94.0); MEAN PLATELET VOLUME 7.1 fl (7.4-10.4); PLATELET 229 x1000/uL (130-400); RED BLOOD CELL COUNT 4.47 mill/uL (4.7-6.1); RED CELL DISTRIBUTION WIDTH 16.8 % (11.6-14.6)
[2019-03-01] MEDS: DOCUSATE SODIUM 100MG CAPSULE PO SCH (08:24)
[2019-03-01] MEDS: LEVETIRACETAM 500MG TABLET PO SCH (08:24)
[2019-03-01] MEDS: PHENYTOIN SODIUM EXTENDED 100MG CAPSULE PO SCH (08:25)
[2019-03-01] MEDS: AMLODIPINE 5MG TABLET PO SCH (08:26)
[2019-03-01] MEDS ORDERED: FENTANYL CITRATE/PF 50MCG/ML 2ML VIAL ONE (08:56)
[2019-03-01] MEDS ORDERED: MIDAZOLAM HCL 2 MG/2 ML VIAL ONE (08:56)
[2019-03-01] MEDS ORDERED: SODIUM BICARBONATE 4% (2.4MEQ) 5ML VIAL IV ONE (08:59)
[2019-03-01] MEDS ORDERED: LIDOCAINE HCL 1% 20ML VIAL (Pyxis) INJ ONE (08:59)
[2019-03-01] MEDS ORDERED: FENTANYL CITRATE/PF 50MCG/ML 2ML VIAL IV ONE (09:20)
[2019-03-01] MEDS ORDERED: MIDAZOLAM HCL 5 MG/5 ML VIAL IV ONE (09:20)
[2019-03-01 09:26] LABS: NUCLEATED RED BLOOD CELLS 1 /100 WBC
[2019-03-01 09:27] LABS: PLATELET ESTIMATE NORMAL
[2019-03-01] MEDS ORDERED: FENTANYL CITRATE/PF 50MCG/ML 2ML VIAL IV SCH (10:00)
[2019-03-01] MEDS ORDERED: MIDAZOLAM HCL 2 MG/2 ML VIAL IV SCH (10:00)
[2019-03-01] MEDS: HYDROCODONE/ACETAMINOPHEN 5/325MG TABLET PO PRN (13:06)
[2019-03-01] MEDS: MORPHINE SULFATE 2 MG/ML CPJ (NOT FOR IM USE) IV PRN (20:09)
[2019-03-01] MEDS: ATORVASTATIN CALCIUM 10MG TABLET PO SCH (20:09)
[2019-03-02 08:12] LABS: EOSINOPHILS % 2.5 % (0.0-5.0); HEMATOCRIT. 30.5 % (42.0-52.0); LYMPHOCYTES % 32.6 % (20.0-50.0); MEAN CORPUSCULAR HEMOGLOBIN 24.1 pg (28.0-32.0); MEAN CORPUSCULAR VOLUME 73.6 fL (80.0-94.0); MEAN PLATELET VOLUME 6.9 fl (7.4-10.4); MONOCYTES % 12.8 % (2.0-8.0); NEUTROPHILS % 51.1 % (40.0-76.0); PLATELET 228 x1000/uL (130-400); RED BLOOD CELL COUNT 4.14 mill/uL (4.7-6.1); RED CELL DISTRIBUTION WIDTH 16.4 % (11.6-14.6)
[2019-03-02 08:38] VITALS: BP 126/80
[2019-03-02 09:23] LABS: CHLORIDE 102 mEq/L (98-107)
[2019-03-02] MEDS: MORPHINE SULFATE 2 MG/ML CPJ (NOT FOR IM USE) IV PRN (09:58)
[2019-03-02] MEDS: PHENYTOIN SODIUM EXTENDED 100MG CAPSULE PO SCH (10:47)
[2019-03-02] MEDS: DOCUSATE SODIUM 100MG CAPSULE PO SCH (10:47)
[2019-03-02] MEDS: LEVETIRACETAM 500MG TABLET PO SCH (10:47)
[2019-03-02] MEDS: AMLODIPINE 5MG TABLET PO SCH (10:50)
[2019-03-02 12:27] VITALS: BP 126/77
== END 2019-03-02 16:10 | disposition home or self-care (01) | DRG 279 ==
LOC: ER 15:40 → CANRESERV 23:42 → ENRESERV 23:42 → 6WST 02-25 00:21
PROVIDERS: ADMIT Internal Medicine; ATTEND Internal Medicine
PROC: 0F9030Z Drainage of Liver with Drainage Device, Percutaneous Approach (ICD-10-PCS; principal; 2019-03-01)
DX: K75.0 Abscess of liver (principal); E44.1 Mild protein-calorie malnutrition; D64.9 Anemia, unspecified; F17.210 Nicotine dependence, cigarettes, uncomplicated; I10 Essential (primary) hypertension; G40.909 Epilepsy, unspecified, not intractable, without status epilepticus; J45.909 Unspecified asthma, uncomplicated; Z60.2 Problems related to living alone; Z90.49 Acquired absence of other specified parts of digestive tract; Z88.8 Allergy status to other drugs, medicaments and biological substances; Z79.899 Other long term (current) drug therapy; Z87.81 Personal history of (healed) traumatic fracture; Z80.8 Family history of malignant neoplasm of other organs or systems
CPT/HCPCS: 36415; 49180; 74177; 76705; 77012; 80048; 80061; 80305; 82550; 82553; 83735; 84443; 84484; 96374; 96375; 99285; C1729; C1769; J1650; J2250; J2270; J2405; J3010; J3490; J7030; J7050; L8514; Q9967

== ENCOUNTER 2019-03-05 18:55 | Emergency (ER) | payer MEDICAID ==
[~2019-03-05] VITALS: Ht 177.8 cm; Wt 70.0 kg
[~2019-03-05 18:55] MED LIST changes: +AMLO5TAB88 PO; +FERR-71 PO; +NAPR-679 PO; +PHEN100C4 PO
[2019-03-05 19:05] VITALS: BP 130/70
== END 2019-03-06 00:26 | disposition left against medical advice (07) ==
LOC: ER 18:55
DX: R07.81 Pleurodynia (principal); Z53.21 Procedure and treatment not carried out due to patient leaving prior to being seen by health care provider

== ENCOUNTER 2019-03-22 21:28 | Inpatient (IN) | payer MEDICAID ==
[~2019-03-22] VITALS: Ht 170.2 cm; Wt 66.2 kg
[2019-03-23] MEDS ORDERED: SODIUM CHLORIDE 0.9% 1,000 ML IV ONE ×2 (02:30→03:00)
[2019-03-23 02:48] LABS: HEMATOCRIT 34.2 % (42.0-52.0); HEMOGLOBIN 11.1 g/dL (14.0-18.0); MEAN CORPUSCULAR HEMOGLOBIN 23.9 pg (28.0-32.0); MEAN CORPUSCULAR VOLUME 73.4 fL (80.0-94.0); PLATELET 232 x1000/uL (130-400); RED BLOOD CELL COUNT 4.66 mill/uL (4.7-6.1); RED CELL DISTRIBUTION WIDTH 15.9 % (11.6-14.6)
[2019-03-23 03:03] LABS: CHLORIDE 104 mEq/L (98-107)
[2019-03-23] MEDS ORDERED: DEXTROSE 50% WATER 50ML SYRINGE IV ONE ×2 (03:17→03:30)
[2019-03-23] MEDS ORDERED: DEXT 5%/0.9% NACL 1,000 ML IV ONE (03:30)
[2019-03-23 05:42] VITALS: BP 109/60
[2019-03-23 08:00] VITALS: BP 127/78
[2019-03-23] MEDS: PHENYTOIN SODIUM EXTENDED 100MG CAPSULE PO SCH (08:50)
[2019-03-23] MEDS: AMLODIPINE 5MG TABLET PO SCH (08:50)
[2019-03-23] MEDS: LEVETIRACETAM 500MG TABLET PO SCH (08:50)
[2019-03-23 11:49] VITALS: BP 124/68
[2019-03-23 12:41] LABS: BASOPHILS % 1.4 % (0.0-2.0); EOSINOPHILS % 0.9 % (0.0-5.0); HEMATOCRIT. 31.3 % (42.0-52.0); HEMOGLOBIN. 10.2 g/dL (14.0-18.0); MEAN CORPUSCULAR HEMOGLOBIN 23.7 pg (28.0-32.0); MEAN CORPUSCULAR VOLUME 72.3 fL (80.0-94.0); MEAN PLATELET VOLUME 6.6 fl (7.4-10.4); MONOCYTES % 7.1 % (2.0-8.0); NEUTROPHILS % 61.6 % (40.0-76.0); PLATELET 188 x1000/uL (130-400); RED BLOOD CELL COUNT 4.32 mill/uL (4.7-6.1); RED CELL DISTRIBUTION WIDTH 15.5 % (11.6-14.6)
[2019-03-23 12:51] LABS: CHLORIDE 103 mEq/L (98-107)
[2019-03-23 16:00] VITALS: BP 137/95
[2019-03-23 20:00] VITALS: BP 135/83
[2019-03-24] VITALS: BP 141/84
[2019-03-24 04:00] VITALS: BP 133/83
[2019-03-24 07:49] VITALS: BP 118/79
[2019-03-24] MEDS: LEVETIRACETAM 500MG TABLET PO SCH (09:05)
[2019-03-24] MEDS: PHENYTOIN SODIUM EXTENDED 100MG CAPSULE PO SCH (09:05)
[2019-03-24] MEDS: AMLODIPINE 5MG TABLET PO SCH (09:17)
[2019-03-24 12:00] VITALS: BP 135/88
[2019-03-24] MEDS ORDERED: GUAIFENESIN-DM 200MG-20MG/10ML UDC PO PRN (13:30)
[2019-03-24] MEDS: ACETAMINOPHEN 325MG TABLET PO PRN ×2 (13:52→23:17)
[2019-03-24] MEDS ORDERED: ONDANSETRON HCL 4MG/2ML INJ IV PRN (14:30)
[2019-03-24 16:00] VITALS: BP 125/84
[2019-03-24] MEDS ORDERED: VANCOMYCIN 1500MG in DEXTROSE 5% WATER 250ML IV SCH (16:00)
[2019-03-24] MEDS: PIPERACILLIN/TAZ 3.375G PREMIX 50 ML IV SCH ×2 (16:12→23:17)
[2019-03-24 20:00] VITALS: BP 124/82
[2019-03-25] VITALS: BP 126/86
[2019-03-25 04:00] VITALS: BP 128/82
[2019-03-25] MEDS: PIPERACILLIN/TAZ 3.375G PREMIX 50 ML IV SCH ×4 (05:28→20:55)
[2019-03-25] MEDS: VANCOMYCIN 1 G PREMIX 200 ML IV SCH ×2 (05:28→16:18)
[2019-03-25 08:00] VITALS: BP 135/82
[2019-03-25 08:27] LABS: HEMATOCRIT. 33.7 % (42.0-52.0); HEMOGLOBIN. 10.9 g/dL (14.0-18.0); MEAN CORPUSCULAR HEMOGLOBIN 23.5 pg (28.0-32.0); MEAN CORPUSCULAR VOLUME 72.8 fL (80.0-94.0); MEAN PLATELET VOLUME 6.8 fl (7.4-10.4); PLATELET 185 x1000/uL (130-400); RED BLOOD CELL COUNT 4.63 mill/uL (4.7-6.1); RED CELL DISTRIBUTION WIDTH 15.6 % (11.6-14.6)
[2019-03-25 08:49] LABS: CHLORIDE 104 mEq/L (98-107)
[2019-03-25] MEDS: LEVETIRACETAM 500MG TABLET PO SCH (09:22)
[2019-03-25] MEDS: AMLODIPINE 5MG TABLET PO SCH (09:22)
[2019-03-25] MEDS: PHENYTOIN SODIUM EXTENDED 100MG CAPSULE PO SCH (09:22)
[2019-03-25 12:00] VITALS: BP 124/78
[2019-03-25] MEDS: ACETAMINOPHEN 325MG TABLET PO PRN ×2 (13:48→21:02)
[2019-03-25 14:28] LABS: PLATELET ESTIMATE NORMAL
[2019-03-25 16:00] VITALS: BP 123/82
[2019-03-25 20:00] VITALS: BP 123/86
[2019-03-26] VITALS: BP 130/86
[2019-03-26] MEDS: PIPERACILLIN/TAZ 3.375G PREMIX 50 ML IV SCH ×4 (03:31→21:04)
[2019-03-26] MEDS: VANCOMYCIN 1 G PREMIX 200 ML IV SCH (03:31)
[2019-03-26 04:00] VITALS: BP 130/83
[2019-03-26 06:08] LABS: HEMATOCRIT. 31.8 % (42.0-52.0); HEMOGLOBIN. 10.3 g/dL (14.0-18.0); MEAN CORPUSCULAR VOLUME 73.8 fL (80.0-94.0); MEAN PLATELET VOLUME 6.7 fl (7.4-10.4); PLATELET 173 x1000/uL (130-400); RED BLOOD CELL COUNT 4.31 mill/uL (4.7-6.1); RED CELL DISTRIBUTION WIDTH 15.1 % (11.6-14.6)
[2019-03-26 06:30] LABS: CHLORIDE 104 mEq/L (98-107)
[2019-03-26 08:00] VITALS: BP 132/81
[2019-03-26] MEDS: AMLODIPINE 5MG TABLET PO SCH (09:21)
[2019-03-26] MEDS: LEVETIRACETAM 500MG TABLET PO SCH (09:21)
[2019-03-26] MEDS: PHENYTOIN SODIUM EXTENDED 100MG CAPSULE PO SCH (09:22)
[2019-03-26] MEDS: ACETAMINOPHEN 325MG TABLET PO PRN ×2 (09:23→15:51)
[2019-03-26 12:00] VITALS: BP 114/75
[2019-03-26 14:00] LABS: NUCLEATED RED BLOOD CELLS 1 /100 WBC; PLATELET ESTIMATE NORMAL
[2019-03-26 16:00] VITALS: BP 118/74
[2019-03-26] MEDS: VANCOMYCIN 750 MG PREMIX 150 ML IV SCH (18:11)
[2019-03-26 20:00] VITALS: BP 123/72
[2019-03-27] VITALS: BP 122/74
[2019-03-27] MEDS: PIPERACILLIN/TAZ 3.375G PREMIX 50 ML IV SCH ×3 (02:39→15:45)
[2019-03-27 04:00] VITALS: BP 102/78
[2019-03-27] MEDS: VANCOMYCIN 750 MG PREMIX 150 ML IV SCH (05:21)
[2019-03-27] MEDS: ACETAMINOPHEN 325MG TABLET PO PRN ×2 (05:21→09:37)
[2019-03-27 08:00] VITALS: BP 125/76
[2019-03-27] MEDS: PHENYTOIN SODIUM EXTENDED 100MG CAPSULE PO SCH (08:42)
[2019-03-27] MEDS: AMLODIPINE 5MG TABLET PO SCH (08:42)
[2019-03-27] MEDS: LEVETIRACETAM 500MG TABLET PO SCH (08:42)
[2019-03-27 09:13] LABS: BASOPHILS % 0.9 % (0.0-2.0); EOSINOPHILS % 3.9 % (0.0-5.0); HEMATOCRIT. 32.5 % (42.0-52.0); HEMOGLOBIN. 10.5 g/dL (14.0-18.0); MEAN CORPUSCULAR HEMOGLOBIN 23.6 pg (28.0-32.0); MEAN CORPUSCULAR VOLUME 73.1 fL (80.0-94.0); MEAN PLATELET VOLUME 6.9 fl (7.4-10.4); MONOCYTES % 7.9 % (2.0-8.0); NEUTROPHILS % 48.3 % (40.0-76.0); PLATELET 177 x1000/uL (130-400); RED BLOOD CELL COUNT 4.44 mill/uL (4.7-6.1); RED CELL DISTRIBUTION WIDTH 15.6 % (11.6-14.6)
[2019-03-27 09:43] LABS: CHLORIDE 105 mEq/L (98-107)
[2019-03-27 14:38] VITALS: BP 125/76
[2019-03-27 16:00] VITALS: BP 127/77
== END 2019-03-27 17:01 | disposition home or self-care (01) | DRG 813 ==
LOC: ER 21:28 → 6EST 03-23 02:47 → ENRESERV 03-23 04:18
PROVIDERS: ADMIT Internal Medicine; ATTEND Internal Medicine
DX: T85.628A Displacement of other specified internal prosthetic devices, implants and grafts, initial encounter (principal); K75.0 Abscess of liver; I74.8 Embolism and thrombosis of other arteries; R56.9 Unspecified convulsions; D50.9 Iron deficiency anemia, unspecified; F17.200 Nicotine dependence, unspecified, uncomplicated; Y83.8 Other surgical procedures as the cause of abnormal reaction of the patient, or of later complication, without mention of misadventure at the time of the procedure; D72.829 Elevated white blood cell count, unspecified; F32.9 Major depressive disorder, single episode, unspecified; E16.2 Hypoglycemia, unspecified; I10 Essential (primary) hypertension; Z48.03 Encounter for change or removal of drains; Z88.8 Allergy status to other drugs, medicaments and biological substances; Z90.49 Acquired absence of other specified parts of digestive tract; Z79.899 Other long term (current) drug therapy; Y92.89 Other specified places as the place of occurrence of the external cause
CPT/HCPCS: 36415; 74176; 80048; 80185; 80202; 82962; 85027; 99285; J2543; J3370; J7030; J7042; J7060

== ENCOUNTER 2020-08-10 16:03 | Emergency (ER) | payer MEDICAID ==
[~2020-08-10] VITALS: Ht 170.2 cm; Wt 70.0 kg
[~2020-08-10 16:03] MED LIST changes: +OMEP40CA12 PO; -OMEP40CA34 PO
[2020-08-10] MEDS ORDERED: NAPROXEN 250MG TABLET PO ONE (16:30)
[2020-08-10 19:18] VITALS: BP 122/63
== END 2020-08-10 19:20 | disposition home or self-care (01) ==
LOC: ER 16:03
DX: S92.002A Unspecified fracture of left calcaneus, initial encounter for closed fracture (principal); W18.39XA Other fall on same level, initial encounter; Y93.89 Activity, other specified; Y92.89 Other specified places as the place of occurrence of the external cause; Y99.8 Other external cause status; D64.9 Anemia, unspecified; J45.909 Unspecified asthma, uncomplicated; F32.9 Major depressive disorder, single episode, unspecified; I10 Essential (primary) hypertension; Z79.899 Other long term (current) drug therapy
CPT/HCPCS: 72100; 73610; 73620; 73630; 99284

== ENCOUNTER 2021-03-27 10:51 | Emergency (ER) | payer MEDICAID ==
[~2021-03-27] VITALS: Ht 172.7 cm; Wt 65.0 kg
[2021-03-27] MEDS ORDERED: CLOT15CR27 TP (11:36)
[2021-03-27 12:00] VITALS: BP 122/70
== END 2021-03-27 12:13 | disposition home or self-care (01) ==
LOC: ER 10:51
DX: L21.0 Seborrhea capitis (principal); I10 Essential (primary) hypertension; J45.909 Unspecified asthma, uncomplicated; Z88.8 Allergy status to other drugs, medicaments and biological substances; Z79.899 Other long term (current) drug therapy; Z86.59 Personal history of other mental and behavioral disorders
CPT/HCPCS: 99281

== ENCOUNTER 2021-10-26 09:38 | Emergency (ER) | payer MEDICAID ==
[~2021-10-26] VITALS: Ht 165.1 cm; Wt 98.0 kg
[~2021-10-26 09:38] MED LIST changes: +CLOT15CR27 TP; -OMEP40CA12 PO; +OMEP40CA20 PO
[2021-10-26 10:29] VITALS: BP 125/55
== END 2021-10-26 13:26 | disposition home or self-care (01) ==
LOC: ER 09:38
DX: R07.0 Pain in throat (principal); R05.9 Cough, unspecified; I10 Essential (primary) hypertension; M19.90 Unspecified osteoarthritis, unspecified site; J45.909 Unspecified asthma, uncomplicated; G40.909 Epilepsy, unspecified, not intractable, without status epilepticus; F32.A Depression, unspecified; Z20.822 Contact with and (suspected) exposure to COVID-19; Z80.9 Family history of malignant neoplasm, unspecified; Z88.8 Allergy status to other drugs, medicaments and biological substances
CPT/HCPCS: 99283; C9803; U0003; U0005

== ENCOUNTER 2022-01-12 17:14 | Emergency (ER) | payer MEDICAID, OTHER ==
[~2022-01-12] VITALS: Ht 170.2 cm; Wt 62.9 kg
[2022-01-12 17:20] VITALS: BP 124/69
[2022-01-12 17:50] LABS: HEMATOCRIT. 27.9 % (42.0-52.0); HEMOGLOBIN. 9.2 g/dL (14.0-18.0); MEAN CORPUSCULAR HEMOGLOBIN 25.8 pg (28.0-32.0); MEAN CORPUSCULAR VOLUME 78.4 fL (80.0-94.0); PLATELET 120 x1000/uL (130-400); RED BLOOD CELL COUNT 3.55 mill/uL (4.7-6.1); RED CELL DISTRIBUTION WIDTH 16.6 % (11.6-14.6)
[2022-01-12 17:55] LABS: CHLORIDE 113 mEq/L (98-107)
[2022-01-12 18:22] LABS: PLATELET ESTIMATE DECREASED
== END 2022-01-12 19:29 | disposition left against medical advice (07) ==
LOC: ER 17:14 → CANBEDREQ 19:59
DX: R07.89 Other chest pain (principal); F17.290 Nicotine dependence, other tobacco product, uncomplicated; J45.909 Unspecified asthma, uncomplicated; E11.9 Type 2 diabetes mellitus without complications; E78.00 Pure hypercholesterolemia, unspecified; I10 Essential (primary) hypertension; Z88.8 Allergy status to other drugs, medicaments and biological substances; Z79.899 Other long term (current) drug therapy; Z86.59 Personal history of other mental and behavioral disorders
CPT/HCPCS: 36415; 80053; 82962; 83880; 84484; 85025; 93005; 99284; 99406

== ENCOUNTER 2022-03-21 14:10 | Emergency (ER) | payer OTHER ==
[~2022-03-21] VITALS: Ht 170.2 cm; Wt 64.0 kg
[2022-03-21 14:28] VITALS: BP 116/85
[2022-03-21 17:18] LABS: HEMATOCRIT. 33.5 % (42.0-52.0); HEMOGLOBIN. 10.9 g/dL (14.0-18.0); MEAN CORPUSCULAR HEMOGLOBIN 25.4 pg (28.0-32.0); MEAN CORPUSCULAR VOLUME 78.2 fL (80.0-94.0); MEAN PLATELET VOLUME 6.9 fl (7.4-10.4); PLATELET 113 x1000/uL (130-400); RED BLOOD CELL COUNT 4.29 mill/uL (4.7-6.1); RED CELL DISTRIBUTION WIDTH 15.9 % (11.6-14.6)
[2022-03-21] MEDS ORDERED: CYCLOBENZAPRINE 10MG TABLET PO SCH (17:30)
[2022-03-21 17:33] LABS: CHLORIDE 107 mEq/L (98-107)
[2022-03-21 17:51] LABS: CLARITY URINE CLEAR (CLEAR); COLOR URINE YELLOW (YELLOW); KETONES URINE NEGATIVE (NEGATIVE); LEUKOCYTE ESTERASE URINE NEGATIVE (NEGATIVE); NITRITE URINE NEGATIVE (NEGATIVE); OCCULT BLOOD URINE NEGATIVE (NEGATIVE); PROTEIN URINE NEGATIVE (NEGATIVE); UROBILINOGEN URINE 0.2 E.U./dL (0.2-1.0)
[2022-03-21] MEDS ORDERED: CYCL5TAB MT (18:22)
[2022-03-21 18:28] LABS: PLATELET ESTIMATE DECREASED
== END 2022-03-21 18:37 | disposition home or self-care (01) ==
LOC: ER 14:32
DX: R10.9 Unspecified abdominal pain (principal); T14.8XXA Other injury of unspecified body region, initial encounter; X58.XXXA Exposure to other specified factors, initial encounter; Y93.89 Activity, other specified; Y92.89 Other specified places as the place of occurrence of the external cause; Y99.8 Other external cause status; D64.9 Anemia, unspecified; J45.909 Unspecified asthma, uncomplicated; F32.9 Major depressive disorder, single episode, unspecified; E11.9 Type 2 diabetes mellitus without complications; E78.00 Pure hypercholesterolemia, unspecified; I10 Essential (primary) hypertension; Z79.899 Other long term (current) drug therapy
CPT/HCPCS: 36415; 80053; 81003; 85025; 99283

== ENCOUNTER 2023-11-24 12:47 | Emergency (ER) | payer MEDICAID ==
[~2023-11-24] VITALS: Ht 170.2 cm; Wt 59.9 kg
[~2023-11-24 12:47] MED LIST changes: +CYCL5TAB MT
[2023-11-24 13:00] VITALS: O2SAT 100
[2023-11-24] MEDS ORDERED: DIPH25CA83 MT (13:50)
[2023-11-24] MEDS ORDERED: FAMO-135 MT (13:50)
[2023-11-24 14:09] VITALS: BP 136/58; PULSE 72; RESP 16; TEMP 98.4
== END 2023-11-24 14:10 | disposition home or self-care (01) ==
LOC: ER 12:47
DX: S80.862A Insect bite (nonvenomous), left lower leg, initial encounter (principal); W57.XXXA Bitten or stung by nonvenomous insect and other nonvenomous arthropods, initial encounter; Y93.89 Activity, other specified; Y92.89 Other specified places as the place of occurrence of the external cause; Y99.8 Other external cause status
CPT/HCPCS: 99282

== ENCOUNTER 2024-01-06 16:16 | Emergency (ER) | payer MEDICAID ==
[~2024-01-06] VITALS: Ht 170.2 cm; Wt 73.0 kg
[~2024-01-06 16:16] MED LIST changes: +DIPH25CA83 MT
[2024-01-06 16:25] VITALS: BP 156/90; PULSE 66; RESP 18; TEMP 98.2; O2SAT 100
[2024-01-06] MEDS ORDERED: SODIUM CHLORIDE 0.9% 500 ML IV ONE (20:15)
[2024-01-06] MEDS ORDERED: HYDROCODONE/ACETAMINOPHEN 7.5/325MG TABLET PO ONE (20:15)
== END 2024-01-07 00:13 | disposition left against medical advice (07) ==
LOC: ER 16:37
DX: M54.9 Dorsalgia, unspecified (principal); J45.909 Unspecified asthma, uncomplicated; E11.9 Type 2 diabetes mellitus without complications; E78.00 Pure hypercholesterolemia, unspecified; Z86.79 Personal history of other diseases of the circulatory system; Z88.8 Allergy status to other drugs, medicaments and biological substances; Z79.899 Other long term (current) drug therapy; Z90.49 Acquired absence of other specified parts of digestive tract; Z98.890 Other specified postprocedural states; Z86.59 Personal history of other mental and behavioral disorders
CPT/HCPCS: 99283; J7040

== ENCOUNTER 2024-06-06 22:14 | Emergency (ER) | payer MEDICAID, OTHER ==
[~2024-06-06] VITALS: Ht 170.2 cm; Wt 62.0 kg
[2024-06-06 22:24] VITALS: TEMP 98.2; O2SAT 98
[2024-06-07 01:12] LABS: CHLORIDE 109 mEq/L (98-107); POTASSIUM 4.1 mEq/L (3.5-5.1); SODIUM 139 mEq/L (136-145)
[2024-06-07 01:13] LABS: CALCIUM 9.2 mg/dL (8.7-10.4); CARBON DIOXIDE 20 mEq/L (21-32)
[2024-06-07 01:18] LABS: CREATININE 1.4 mg/dL (0.6-1.3); GLUCOSE 90 mg/dL (70-105); UREA NITROGEN BLOOD 16 mg/dL (9-23)
[2024-06-07 01:21] LABS: TROPONIN I HIGH SENSITIVITY < 4 ng/L (3.0-53)
[2024-06-07 01:40] LABS: HEMATOCRIT. 33.9 % (42.0-52.0); HEMOGLOBIN. 10.6 g/dL (14.0-18.0); MEAN CORPUSCULAR HGB CONC 31.1 g/dL (31.0-37.0); MEAN CORPUSCULAR VOLUME 80.3 fL (80.0-94.0); MEAN PLATELET VOLUME 7.4 fl (7.4-10.4); PLATELET 108 x1000/uL (130-400); RED BLOOD CELL COUNT 4.23 mill/uL (4.7-6.1); RED CELL DISTRIBUTION WIDTH 16.6 % (11.6-14.6); WHITE BLOOD COUNT 4.4 x1000/uL (4.5-11.0)
[2024-06-07 01:41] LABS: DIFFERENTIAL COMMENT 1
[2024-06-07 02:36] LABS: PLATELET ESTIMATE NORMAL
[2024-06-07] MEDS: ASPIRIN 325MG EC TABLET PO NR (04:43)
[2024-06-07 05:11] LABS: TROPONIN I HIGH SENSITIVITY < 4 ng/L (3.0-53)
[2024-06-07 09:36] VITALS: BP 148/82; PULSE 61; RESP 16; O2SAT 97
== END 2024-06-07 09:35 | disposition short-term general hospital (02) ==
LOC: ER 22:14
DX: R07.9 Chest pain, unspecified (principal); R00.2 Palpitations; D64.9 Anemia, unspecified; I10 Essential (primary) hypertension; Z79.899 Other long term (current) drug therapy; Z88.8 Allergy status to other drugs, medicaments and biological substances
CPT/HCPCS: 36415; 71045; 80048; 84484; 85025; 93005; 99285